=== PATIENT | male | born 1960 | race Two or more races ===

== ENCOUNTER 2018-08-12 05:58 | Day surgery (SDC) | payer OTHER ==
[~2018-08-12 05:58] MED LIST: FENOFIBRATE134 MG PO; SYNTHROID75 MCG PO
[2018-08-12] MEDS ORDERED: PERCOCET 5-3251 EACH PO (08:36)
== END 2018-08-12 11:10 | disposition home or self-care (01) ==
LOC: CIR.AMB 05:58
DX: E21.0 Primary hyperparathyroidism (principal); D35.1 Benign neoplasm of parathyroid gland